=== PATIENT | male | born 2000 | race Caucasian/White ===

== ENCOUNTER 2024-12-08 11:26 | Outpatient (CLI) | payer MEDICAID, SELFPAY ==
[2024-12-08 11:45] LABS: Hemoglobin* 15.6 gm/dL (13.5-17.5)
[2024-12-08 12:45] LABS: Ferritin* 15.6 ng/mL (17.9-464.0)
== END 2024-12-08 11:27 | disposition home or self-care (01) ==
PROVIDERS: Visit Provider Family Medicine
DX: R53.83 Other fatigue (principal)
CPT/HCPCS: 36415; 82728; 85018